=== PATIENT | female | born 1945 | race Caucasian/White ===

== ENCOUNTER 2019-11-08 16:29 | Emergency (ER) | payer MEDICARE, MEDICAID ==
[~2019-11-08] VITALS: Ht 167 cm; Wt 119.0 kg
[2019-11-08 16:42] VITALS: BP 113/71
--- NOTE | 2019-11-08 17:02 | Diagnostic Imaging Report ---
EXAM: Knee 3 view left INDICATION: Knee pain for 3 days. COMPARISON: None. FINDINGS: There are severe tricompartmental degenerative changes in the left knee. Marked joint space narrowing medially. No suspicious osteoblastic or lytic lesion. No fracture. Small left knee joint effusion. IMPRESSION: 1. Small left knee joint effusion. 2. Severe tricompartmental degenerative changes in the left knee. Dictated by: Dictated on workstation # [id number]
[2019-11-08] MEDS ORDERED: HYDROcodone/APAP 5 MG/325 MG (LORTAB) TAB PO ONE (17:15)
[2019-11-08] MEDS ORDERED: HYDR-3812 PO (17:15)
[2019-11-08] MEDS ORDERED: IBUPROFEN 600 MG (MOTRIN) TAB PO ONE (17:15)
--- NOTE | 2019-11-08 17:23 | ED Lower Extremity ---
General Chief Complaint: Lower Extremity Stated Complaint: LT KNEE PAIN Nursing Triage Note: LEFT KNEE PAIN X 3 DAYS. NO INJURY. NO REDNESS OR SWELLING. Nursing Sepsis Screen: No Definite Risk Source: patient Exam Limitations: no limitations History of Present Illness Date Seen by Provider: Nov 08, 2019 Time Seen by Provider: 16:45 Initial Comments Patient is a 73-year-old female who presents with right knee pain 3 days. Pain is located in the suprapatellar region with minimal swelling noted. Denies trauma repetitive strain injury. No warmth, erythema rash appreciated on exam. Pain is rated moderate is worse with weightbearing. No pain medications or therapies taken prior to ED arrival. Patient does have appointment with her PCP on Sunday but is unable to wait for appointment due to pain severity. No other acute symptoms or complaints. Onset: other Pain/Injury Location: left knee Method of Injury: other (unknown) Modifying Factors: Improves With Movement, Improves With Pain Medication Allergies and Home Medications Allergies Coded Allergies: No Known Drug Allergies (Unverified , 11/08/19) Home Medications Hydrocodone/Acetaminophen 1 Each Tablet, 1 EACH PO q6 Prescribed by: MAKAYLA CASTLE on 11/08/19 1247 Patient Home Medication List Home Medication List Reviewed: Yes Review of Systems Constitutional: see HPI EENTM: see HPI Respiratory: see HPI Cardiovascular: see HPI Gastrointestinal: see HPI : No Musculoskeletal: see HPI, joint swelling, other Skin: no symptoms reported Psychiatric/Neurological: No Symptoms Reported Past [id number]-Npyrtl-Hlxdep Hx Past Med/Social Hx: Reviewed Nursing Past Med/Soc Hx Patient Social History Alcohol Use: Denies Use Recreational Drug Use: No Smoking Status: Current Everyday Smoker Type Used: Cigarettes 2nd Hand Smoke Exposure: Yes Recent Foreign Travel: No Contact w/Someone Who Travel: No Recent Infectious Disease Expo: No Recent Hopitalizations: No Physical Abuse: No Sexual Abuse: No Mistreated: No Fear: No Seasonal Allergies Seasonal Allergies: No Past Medical History Surgeries: Yes Bladder Surgery, Hysterectomy, Orthopedic Respiratory: No Cardiac: No Neurological: No Genitourinary: No Gastrointestinal: No Musculoskeletal: No Endocrine: Yes Diabetes, Insulin dep HEENT: No Cancer: No Psychosocial: No Integumentary: No Blood Disorders: No Physical Exam Vital Signs Vital Signs - First Documented 11/08/19 16:42 Temp 36.8 Pulse 82 Resp 18 B/P (MAP) 113/71 (85) Pulse Ox 98 O2 Delivery Room Air Capillary Refill : Less Than 3 Seconds Height, Weight, BMI Height: '" Weight: lbs. oz. kg; 42.00 BMI Method: General Appearance: mild distress HEENT: PERRL/EOMI, normal ENT inspection Neck: normal inspection Cardiovascular: regular rate, rhythm Respiratory: normal breath sounds, no respiratory distress, no accessory muscle use Gastrointestinal: soft Knees: left knee normal range of motion, left knee pain, left knee soft tissue tenderness, left knee swelling, left knee other (no erythema, rash, warmth appreciated) Progress/Results/Core Measures Results/Orders My Orders Orders - MAKAYLA CASTLE DO Knee 3 View Left (11/08/19 16:41) Ibuprofen Tablet (Motrin Tablet) (11/08/19 17:15) Hydrocodone/Apap 5/325 Tablet (Lortab 5 (11/08/19 17:15) Medications Given in ED Current Medications Medications Dose Ordered Sig/Melissa Route Start Time Stop Time Status Last Admin Dose Admin Acetaminophen/ Hydrocodone Bitart 1 tab ONCE ONCE PO 11/08/19 17:15 11/08/19 17:16 DC 11/08/19 17:17 1 TAB Vital Signs/I&O 11/08/19 16:42 Temp 36.8 Pulse 82 Resp 18 B/P (MAP) 113/71 (85) Pulse Ox 98 O2 Delivery Room Air Blood Pressure Mean: 85 Departure Communication (Admissions) Atraumatic right knee pain with findings of osteoarthritis and small joint effu aileen on imaging. Pain address. Recommend's report of care with PCP follow-up on Sunday Impression Primary Impression: Pain in right knee Additional Impression: Osteoarthritis of right knee Disposition: HOME, SELF-CARE Condition: Stable Departure-Patient Inst. Add. Discharge Instructions: Please take 600 mg of ibuprofen 3 times daily and take hydrocodone as needed for additional relief. Apply ice to affected areas for additional relief. Follow-up with your PCP on Sunday has scheduled. All discharge instructions reviewed with patient and/or family. Voiced understanding. Scripts Hydrocodone/Acetaminophen (Hydrocodone-Acetamin 5-325 mg) 1 Each Tablet 1 EACH PO q6, #10 TAB Prov: MAKAYLA CASTLE DO 11/08/19 MAKAYLA CASTLE DO Nov 08, 2019 17:23
== END 2019-11-08 17:20 | disposition home or self-care (01) ==
LOC: ER FS 16:32
DX: M17.11 Unilateral primary osteoarthritis, right knee (principal); F17.210 Nicotine dependence, cigarettes, uncomplicated
CPT/HCPCS: 73562

== ENCOUNTER → 2022-07-26 | Outpatient (CLI) | payer MEDICAID, MEDICARE ==
[~2022-07-26] MED LIST: ACHD5005 PO
== END ==
LOC: CARD 13:23
DX: R00.2 Palpitations (principal)